=== PATIENT | female | born 1970 | race Caucasian/White ===

== ENCOUNTER 2017-12-07 21:40 | Emergency (ER) | payer MEDICAID ==
[2017-12-08 00:07] VITALS: BP 125/70
== END 2017-12-08 00:07 | disposition home or self-care (01) ==
LOC: ED 21:40
DX: L60.0 Ingrowing nail (principal)

== ENCOUNTER 2017-12-09 11:24 | Emergency (ER) | payer MEDICAID ==
[~2017-12-09] VITALS: Ht 157.5 cm; Wt 72.1 kg
== END 2017-12-09 12:33 | disposition home or self-care (01) ==
LOC: ED 11:24
DX: Z48.01 Encounter for change or removal of surgical wound dressing (principal); M79.672 Pain in left foot

== ENCOUNTER 2018-07-12 18:00 | Emergency (ER) | payer MEDICAID ==
[~2018-07-12] VITALS: Ht 157.5 cm; Wt 65.8 kg
[2018-07-12 18:18] VITALS: Ht 157.5 cm; Wt 65.8 kg
[2018-07-12 19:42] VITALS: BP 129/71
== END 2018-07-12 19:42 | disposition home or self-care (01) ==
LOC: ED 18:00
DX: G89.29 Other chronic pain (principal); M54.5 Low back pain; R30.0 Dysuria
CPT/HCPCS: J1885

== ENCOUNTER 2018-09-21 14:56 | Emergency (ER) | payer MEDICAID ==
[~2018-09-21] VITALS: Ht 157.5 cm; Wt 65.8 kg
[2018-09-21 14:59] VITALS: Ht 157.5 cm; Wt 65.8 kg
[2018-09-21 16:20] VITALS: BP 100/69
== END 2018-09-21 16:28 | disposition home or self-care (01) ==
LOC: ED 14:56
DX: J11.1 Influenza due to unidentified influenza virus with other respiratory manifestations (principal)
CPT/HCPCS: J1885; Q0092

== ENCOUNTER 2020-03-13 21:06 | Emergency (ER) | payer MEDICAID, SELFPAY ==
[~2020-03-13] VITALS: Ht 157.5 cm; Wt 59.0 kg
[2020-03-13 21:07] VITALS: Ht 157.5 cm; Wt 59.0 kg
[2020-03-13 21:31] VITALS: BP 118/50
== END 2020-03-13 21:31 | disposition home or self-care (01) ==
LOC: ED 21:06
DX: U07.1 COVID-19 (principal); B34.9 Viral infection, unspecified
CPT/HCPCS: U0003-CS